=== PATIENT | female | born 1985 | race Caucasian/White ===

== ENCOUNTER 2020-06-02 20:58 | Emergency (ER) | payer BC ==
[2020-06-02 21:29] LABS: Bilirubin Negative (Negative); Blood, Urine Negative (Negative); Clarity Clear (Clear); Glucose, Urine (Dipstick) Negative (Negative); Ketone, Urine Negative (Negative); Leukocyte Negative (Negative); Nitrite Negative (Negative); Protein, Urine (Dipstick) Negative (Neg-Trace); Specific Gravity, Urine 1.025 (1.005-1.030); Urobilinogen 0.2 mg/dL (Less than 2); pH, Urine 6.5 (5.0-9.0)
[2020-06-02 21:30] LABS: Pregnancy Test - Urine (BHCG) Negative (Negative); Pregu Control Background? CLEAR/WHITE (CLR/WHITE); Pregu Control Bar Appear? YES (CONTROL BAR); Specific Gravity 1.025 (1.002-1.036)
[2020-06-02] MEDS ORDERED: Ibuprofen 800 MG TAB ONE (22:10)
[2020-06-02] MEDS ORDERED: Sulfameth/Trimethoprim DS 800-160mg TAB ONE (22:10)
[2020-06-02] MEDS ORDERED: metroNIDAZOLE 250 MG TAB ONE (22:10)
[2020-06-02] MEDS ORDERED: Acetaminophen 500 MG TAB ONE (22:10)
--- NOTE | 2020-06-03 07:14 | CT ---
CT ABDOMEN AND PELVIS WITHOUT CONTRAST: Date: 06/02/[address] of the abdomen and pelvis was done for evaluation of left lower quadrant pain. There appears to be a hyperdense diverticulum that projects from the sigmoid colon. The fat around it shows considerable streaking, typical of inflammatory change. The findings presumably represent dive rticulitis. The remainder of the bowel was unremarkable. The patient has a retrocecal appendix that a ppears normal. No free air free fluid was seen. The lung bases are clear. The liver, spleen, pancreas, adrenal glands, kidneys, and abdominal aorta a ll appeared normal within the limitations of a noncontrast study. The CT of the pelvis was remarkable for the diverticular findings. No adnexal masses or free fluid se en. IMPRESSION: Findings suggestive of sigmoid diverticulitis with inflammatory change around what is apparently a si ngle diverticulum. Findings discussed with Dr. Contreras at 2200 hours on 06/02/2020. CODE CR. POS: HOME
== END 2020-06-02 22:20 | disposition home or self-care (01) ==
LOC: BURERS 20:58
DX: K57.32 Diverticulitis of large intestine without perforation or abscess without bleeding (principal)
CPT/HCPCS: 74176; 81003; 81025